=== PATIENT | female | born 1980 | race Caucasian/White ===

== ENCOUNTER 2018-08-11 10:32 | Inpatient (IN) | payer OTHER ==
[2018-08-11] MEDS ORDERED: BICITRA PO SCH (10:35)
[2018-08-11] MEDS ORDERED: PEPCID IV SCH (10:35)
[2018-08-11] MEDS ORDERED: REGLAN IV SCH (10:35)
[2018-08-11] MEDS ORDERED: NARCAN 0.4 MG/1 ML IV PRN ×2 (10:43→14:25)
[2018-08-11] MEDS ORDERED: DILAUDID IV PRN ×2 (10:43)
[2018-08-11] MEDS ORDERED: BENADRYL IV PRN (10:43)
[2018-08-11] MEDS ORDERED: ZOFRAN IV PRN ×2 (10:43→14:25)
[2018-08-11] MEDS ORDERED: PHENERGAN PO PRN (10:43)
[2018-08-11] MEDS ORDERED: PHENERGAN PR PRN (10:43)
--- NOTE | 2018-08-11 10:47 | Anesthesia Consultation ---
Anesthesia Consult and Med Hx Date of service: 08/11/18 - Airway Anesthetic Teeth Evaluation: Good ROM Head & Neck: Adequate Mental/Hyoid Distance: Adequate Mallampati Class: Class II Intubation Access Assessment: Probably Good - Pulmonary Exam CTA: Yes - Cardiac Exam Cardiac Exam: RRR - Pre-Operative Health Status ASA Pre-Surgery Classification: ASA2, Emergency Proposed Anesthetic Plan: Epidural, Spinal - Pulmonary Hx Smoking: No Hx Asthma: No Hx Respiratory Symptoms: No SOB: No COPD: No Home Oxygen Therapy: No Hx Pneumonia: No Hx Sleep Apnea: No - Cardiovascular System Hx Hypertension: No Hx Coronary Artery Disease: No Hx Heart Attack/AMI: No Hx Angina: No Hx Percutaneous Transluminal Coronary Angioplasty (PTCA): No Hx Cardia Arrhythmia: No Hx Pacemaker: No Hx Internal Defibrillator: No Hx Valvular Heart Disease: No Hx Heart Murmur: No Hx Peripheral Vascular Disease: No - Central Nervous System Hx Neuromuscular Disorder: No Hx Seizures: No CVA: No Hx Back Pain: Yes Hx Psychiatric Problems: No - Gastrointestinal Hx Ulcer: No Hx Gastroesophageal Reflux Disease: Yes - Endocrine Hx Renal Disease: No Hx End Stage Renal Disease: No Hx Cirrhosis: No Hx Liver Disease: No Hx Insulin Dependent Diabetes: No Hx Non-Insulin Dependent Diabetes: No Hx Thyroid Disease: No Hx Hypothyroidism: No Hx Hyperthyroidism: No - Hematic Hx Anemia: No Hx Sickle Cell Disease: No - Other Systems Hx Alcohol Use: No Hx Substance Use: No Hx Cancer: No Hx Obesity: Yes
--- NOTE | 2018-08-11 10:47 | Post Anesthesia Evaluation ---
- Post Anesthesia Evaluation Patient Participated: Yes Airway Patent: Yes Stable Respiratory Function: Yes Nausea/Vomiting: No Temp > 96.8F: Yes Pain Manageable: Yes Adequeate Hydration: Yes Anesthesia Complications: Yes Block Receding Appropriately: Yes Patient on Ventilator: No
--- NOTE | 2018-08-11 10:47 | Anesthesia Day of Surgery ---
Anesthesia Day of Surgery - Day of Surgery Patient Examined: Yes Patient H&P Reviewed: Yes Patient is NPO: Yes Beta Blockers: No Cardiac Clearance: No Pulmonary Clearance: No Vinay's Test: N/A
[2018-08-11] MEDS ORDERED: SUBLIMAZE ONE (10:59)
[2018-08-11] MEDS ORDERED: PITOCin/NS 20 UNIT/1000ML DRIP 20 UNITS/1,000 ML BAG IV SCH ×2 (11:00→14:25)
[2018-08-11] MEDS ORDERED: LACTATED RINGERS 1,000 ML IV SCH (11:00)
[2018-08-11] MEDS ORDERED: SODIUM CHLORIDE FLUSH SYRINGE 10 ML IV SCH (11:00)
[2018-08-11] MEDS ORDERED: ANCEF/STERILE WATER 2 GM/20 ML 2 GM/20 ML SYRINGE IV NR (11:00)
[2018-08-11 11:06] LABS: Basophils % (Auto) 0.3 % (0.0-1.8); Eosinophils # (Auto) 0.1 K/mm3 (0.0-0.4); Eosinophils % (Auto) 0.6 % (0.0-4.3); Hematocrit 35.9 % (30.3-42.9); Hemoglobin 12.2 gm/dl (10.1-14.3); Lymphocytes # (Auto) 3.1 K/mm3 (1.2-5.4); Mean Corpuscular HGB Conc 34 % (30-34); Mean Corpuscular Volume 85 fl (79-97); Monocytes # (Auto) 0.6 K/mm3 (0.0-0.8); Monocytes % (Auto) 5.9 % (0.0-7.3); Platelet Count 282 K/mm3 (140-440); Red Blood Count 4.21 M/mm3 (3.65-5.03)
--- NOTE | 2018-08-11 11:06 | History and Physical Report ---
History of Present Illness Date of examination: 08/11/18 Date of admission: 08/11/18 10:32 History of present illness: Patient presented to labor and delivery with complaints of ruptured membranes and regular contractions. Patient receiving care at [facility] gives a history of 2 previous sections. Workup in triage revealed the patient with ruptured membranes, regular contractions and cervix dilated to 4 cm. patient's history was obtained with interpretation by Elo Schmitz RN Past History Past Medical History: no pertinent history Past Surgical History: section Social history: full code - Obstetrical History Expected Date of Delivery: 08/18/18 Actual Gestation: 39 Week(s) 0 Day(s) : 3 Para: 2 Hx # Term Pregnancies: 2 Number of Pregnancies: 0 Spontaneous Abortions: 0 Induced : 0 Number of Living Children: 2 Medications and Allergies Allergies Allergy/AdvReac Type Severity Reaction Status Date / Time No Known Allergies Allergy Unverified 02/11/14 16:55 Home Medications Medication Instructions Recorded Confirmed Last Taken Type Phenazopyridine [Pyridium] 200 mg PO TID #6 tablet 02/11/14 02/28/15 Unknown Rx Sulfamethoxazole/Trimethoprim 1 each PO BID 7 Days tablet 02/11/14 02/28/15 Unknown Rx [Bactrim Ds] Ibuprofen [Motrin 600 MG tab] 600 mg PO Q8H PRN #30 tablet 02/28/15 Unknown Rx Multivitamin with Iron 1 each PO DAILY #30 tablet 02/28/15 Unknown Rx [Multivitamins with Iron] oxyCODONE /ACETAMINOPHEN [Percocet 1 tab PO Q6HR PRN #30 tablet 02/28/15 Unknown Rx 5/325] Ferrous Sulfate [Feosol 325 MG tab] 325 mg PO BID #60 tablet 08/11/18 Unknown Rx Ibuprofen [Motrin 800 MG tab] 800 mg PO Q6H PRN #30 tablet 08/11/18 Unknown Rx oxyCODONE /ACETAMINOPHEN [Percocet 1 - 2 tab PO Q4H PRN #20 tablet 08/11/18 Unknown Rx 5/325 mg] Active Meds: Active Medications Citric Acid/Sodium Citrate (Bicitra) 30 ml PO ONCE ONE Stop: 08/11/18 10:36 Diphenhydramine HCl (Benadryl) 12.5 mg IV Q2H PRN PRN Reason: Itching Famotidine (Pepcid) 20 mg IV ONCE ONE Stop: 08/11/18 10:36 Hydromorphone HCl (Dilaudid) 0.5 mg IV Q5M PRN PRN Reason: Breakthrough Pain Hydromorphone HCl (Dilaudid) 0.5 mg IV Q4H PRN PRN Reason: breakthrough pain > 7/10 Cefazolin Sodium (Ancef/Sterile Water 2 Gm/20 Ml) 2 gm in 20 mls @ 80 mls/hr IV PREOP NR; Protocol Stop: 08/11/18 20:00 Oxytocin/Sodium Chloride (Pitocin/Ns 20 Unit/1000ml Drip) 20 units in 1,000 mls @ 0 mls/hr IV TITR SERAFIN Lactated Ringer's (Lactated Ringers) 1,000 mls @ 2,250 mls/hr IV PREOP SERAFIN Stop: 08/12/18 11:27 Metoclopramide HCl (Reglan) 10 mg IV ONCE ONE Stop: 08/11/18 10:36 Naloxone HCl (Narcan 0.4 Mg/1 Ml) 0.2 mg IV Q2MIN PRN PRN Reason: Res Rate </= 8 or 02 SAT < 92% Ondansetron HCl (Zofran) 4 mg IV Q8H PRN PRN Reason: Nausea And Vomiting Promethazine HCl (Phenergan) 25 mg PO Q6H PRN PRN Reason: Nausea And Vomiting Promethazine HCl (Phenergan) 25 mg NE Q6H PRN PRN Reason: Nausea And Vomiting Sodium Chloride (Sodium Chloride Flush Syringe 10 Ml) 10 ml IV PRN NR Review of Systems All systems: negative Genitourinary: contractions - Physical Exam Breasts: Positive: deferred Abdomen: Positive: normal appearance, soft, normal bowel sounds Genitourinary (Female): Positive: normal external genitalia Uterus: Positive: enlarged Extremities: Positive: normal - Obstetrical FHR: category 1 Uterine Contraction Pattern: Regular Uterine Contraction Intensity: Strong/Firm Results Result Diagrams: 08/11/18 10:50 All other labs normal. Assessment and Plan - Patient Problems (1) Active labor at term Current Visit: No Status: Acute (2) Previous delivery, antepartum Current Visit: No Status: Acute Plan to address problem: Previous section 2. Gestation states that she was scheduled for repeat section at her primary [facility]. Patient understands the indication for repeat section due to 2 previous sections.Patient informed the risks of the surgery include bleeding possibly bleeding heavy enough to require blood transfusion, infection possible damage to bowel bladder ureter. All questions answered. Patient agrees to proceed patient did sign completed today operative consent in Persian.
[2018-08-11] MEDS ORDERED: TORADOL ONE (12:05)
--- NOTE | 2018-08-11 12:14 | Operative Report ---
Operative Report Operative Report: Date of procedure: 08/11/2018 Pre-operative diagnosis: Intrauterine at 39 weeks with ruptured membr anes in active labor with a history of 2 previous sections Post-operative diagnosis: Same Procedure name(s): Repeat low-transverse section Surgeon: Pierre Bland MD Space Physicist: Anesthesia: Spinal EBL: 500 mL Complications: None Findings: Patient with gravid uterus with thin lower uterine segment with adhesions between the anterior uterus and bladder. Normal tubes and ovaries bilaterally. Male weight 6 lbs. 8 oz. Apgars 9 at 1 minute and 9 at 5 minutes Specimen(s): Cord blood Procedure: The patient was brought to the operating room. A spinal was placed without any complications. She was then placed in left lateral tilt. Prepped and draped in the usual sterile manner. After testing for adequate anesthesia level, a Pfannenstiel incision was made through her previous scar. This incision was taken down to the fascia. The fascia was then nicked in the midline. This incision was extended out laterally with Lee scissors. The fascia was then sharply and bluntly from the underlying rectus muscles. The rectus muscles were bluntly and sharply . The peritoneum was then entered with the cuff turner machine operator's fingers. This incision was spread vertically with care not to damage the bladder below. The bladder flap was then formed sharply and bluntly with Metzenbaum scissors. The José Luis self-retaining tractor was then placed without any difficulty. A transverse incision was made in lower uterine segment. This incision was extended laterally with the operators fingers. The amniotic sac was then entered bluntly with the ope rator's fingers. The was delivered from the vertex position. Bulb suction on the mother's abdomen. Cord was double clamped and cut. The infant was then passed to the nursery personnel who were in attendance. The above scores were given by the nursery personnel. The placenta was then bluntly removed. The uterus was then externalized and wiped clean the remaining products. The uterine incision was closed in layers. The first incision was closed in a locking manner using 0 Vicryl. This was followed by imbricating stitch also with 0 Vicryl. This closure was hemostatic. The bladder flap was copiously irrigated and found to be hemostatic. The pelvis was copiously irrigated and found to be hemostatic. The uterus was then placed back to the patient's abdomen. The retractors were removed. The rectus muscles were inspected and found to be hemostatic. The fascia was then closed in a running manner using 0 Vicryl. This incision was hemostatic irrigation Bovie. The skin was reapproximated with 4-0 Vicryl subcuticularly. The patient tolerated procedure well. Her urine was clear. The was admitted to the well baby nursery. The patient was accompanied to recovery room in good condition. Instrument count correct 3.
[2018-08-11 12:33] LABS: Hepatitis C Virus Antibody Nonreactive (NonReactive)
[2018-08-11] MEDS ORDERED: SODIUM CHLORIDE FLUSH SYRINGE 10 ML IV NR (14:25)
[2018-08-11] MEDS ORDERED: TORADOL IV PRN (14:25)
[2018-08-11] MEDS ORDERED: LANSINOH TP PRN (14:25)
[2018-08-11] MEDS ORDERED: MYLICON PO PRN (14:25)
[2018-08-11] MEDS ORDERED: D5LR 1,000 ML IV SCH ×2 (14:25→15:00)
[2018-08-11] MEDS ORDERED: MILK OF MAGNESIA PO PRN (14:25)
[2018-08-11] MEDS ORDERED: ANCEF/NS 1 GM/50 ML 1 GM/50 ML BAG IV SCH (14:25)
[2018-08-11] MEDS ORDERED: TUCKS PAD TP PRN (14:25)
[2018-08-11 17:09] LABS: Amphetamine Screen,Urine PRESUMPTIVE NEGATIVE; Benzodiazepines Screen,Urine PRESUMPTIVE NEGATIVE; Cannabinoid Screen,Urine PRESUMPTIVE NEGATIVE; Cocaine Screen,Urine PRESUMPTIVE NEGATIVE; Methadone Screen,Urine PRESUMPTIVE NEGATIVE; Opiate Screen,Urine PRESUMPTIVE NEGATIVE
[2018-08-11] MEDS: ANCEF/NS 1 GM/50 ML 1 GM/50 ML BAG IV SCH (20:16)
[2018-08-11] MEDS: NORCO 5/325 PO PRN (23:36)
[2018-08-11] MEDS ORDERED: LACTATED RINGERS 300 ML IV SCH (23:45)
[2018-08-12 01:10] LABS: Hematocrit 29.8 % (30.3-42.9); Hemoglobin 10.4 gm/dl (10.1-14.3)
[2018-08-12] MEDS: ANCEF/NS 1 GM/50 ML 1 GM/50 ML BAG IV SCH (03:05)
[2018-08-12] MEDS: IBUPROFEN PO PRN ×2 (07:50→15:27)
[2018-08-12] MEDS: FEOSOL PO SCH (09:26)
[2018-08-12] MEDS: PRENATAL VITAMIN PO SCH (09:26)
[2018-08-12] MEDS: NORCO 5/325 PO PRN ×2 (09:27→15:25)
--- NOTE | 2018-08-12 19:43 | Progress Note ---
Assessment and Plan POD 1 s/p repeat c/s. Patient reports feeling well, denies any complaints or concerns at this time. Fundus is firm, ML, U/1. Vaginal bleeding is scant, patient denies any heavy bleeding or clots. Abdominal incision is healing well, well-approximated, no bleeding or drainage noted, no s/s of infection. Steri strips and abdominal binder in place at current. Patient reports pain is zero at this time, well controlled with medications. She reports is going well and infant is doing well. VSSAF, BP are normal/stable range for patient. She denies any dizziness or feeling faint with position changes or ambulation. post delivery H&H reviewed with patient, stable. Will continue post op pathway. Subjective - Subjective Date of service: 08/12/18 Principal diagnosis: POD 1 s/p repeat c/s Patient reports: appetite normal, voiding normally, pain well controlled, ambulating normally : doing well Objective - Vital Signs Latest vital signs: Vital Signs Temp Pulse Resp BP BP Pulse Ox 08/12/18 16:51 98.0 F 69 18 95/39 96 08/12/18 07:54 97.7 F 72 18 102/46 96 08/12/18 04:11 98.3 F 76 18 105/41 96 08/12/18 00:00 98.2 F 76 18 98/46 08/11/18 23:36 18 08/11/18 19:56 98.5 F 68 18 104/54 99 Intake and Output 08/12/18 08/12/18 08/12/18 07:59 15:59 23:59 Intake Total 120 Output Total 400 Balance -280 Intake: Oral 120 Output: Urine 400 Void 400 Other: Total, Intake Amount 120 Total, Output Amount 400 # Voids Void 1 - Exam Breasts: Present: normal Cardiovascular: Present: Regular rate, Normal S1, Normal S2 Lungs: Present: Clear to auscultation Abdomen: Present: normal appearance, soft, normal bowel sounds Vulva: both: normal Uterus: Present: normal, firm Extremities: Present: normal Deep Tendon Reflex Grade: Normal +2 Incision: Present: normal, dry, intact - Labs Labs: Abnormal lab results 08/12/18 Range/Units 00:47 Hct 29.8 L D (30.3-42.9) %
[2018-08-13] MEDS: IBUPROFEN PO PRN ×2 (00:15→10:50)
[2018-08-13] MEDS: NORCO 5/325 PO PRN ×2 (00:15→05:48)
--- NOTE | 2018-08-13 06:32 | Discharge Summary ---
Providers - Providers Date of Admission: 08/11/18 10:32 Date of discharge: 08/13/18 (male partner present in room Interpreted instructions; pt agrees with d/c) Attending physician: LEESA DUNCAN 08/11/18 14:25 Consult to Transmission Maintenance Supervisor [CONS] Routine Reason For Exam: Primary care physician: LEESA DUNCAN Hospitalization Reason for admission: active labor Delivery: Procedure: repeat low transverse Episiotomy: none Laceration: none Incision: normal, dry, intact Other procedures: none complications: none Discharge diagnosis: IUP at term delivered baby: male Hospital course: walk-in uncomplicated repeat section Pt voiced no c/o this AM VSS FF below umb Lochia scant Incision D&I Abdominal binder on. H&H stable No s/sx of anemia Doing well s/p repeat c/s P: d/c today with instructions RTO 1 week postop care Pt desires to f/u with [facility] information given Condition at discharge: Good Disposition: DC-01 TO HOME OR SELFCARE - Discharge Diagnoses (1) delivery delivered Status: Acute Comment: RTO 1 week postop care Plan - Discharge Medications Prescriptions: Ferrous Sulfate [Feosol 325 MG tab] 325 mg PO BID #60 tablet Ibuprofen [Motrin 800 MG tab] 800 mg PO Q6H PRN #30 tablet PRN Reason: Pain oxyCODONE /ACETAMINOPHEN [Percocet 5/325 mg] 1 - 2 tab PO Q4H PRN #20 tablet PRN Reason: Pain, Moderate - Provider Discharge Summary Activity: routine, no sex for 6 weeks, no heavy lifting 4 weeks, no strenuous exercise Diet: routine Instructions: routine Additional instructions: [] Smoking cessation referral if applicable(refer to patient education folder for contact #) [] Refer to [facility] Booklet Call your doctor immediately for: * Fever > 100.5 * Heavy vaginal bleeding ( >1 pad per hour) * Severe persistent headache * Shortness of breath * Reddened, hot, painful area to leg or breast * Drainage or odor from incision. * Keep incision clean and dry at all times and follow doctor's instructions regarding bathing/showering - Follow up plan Follow up: LEESA DUNCAN MD [Primary Care Provider] - 7 Days (Congratulations! Please call [phone] to schedule your postoperative visit in 1 week. Take medications as prescribed. Call with concerns. [facility], [address], [address], [facility], [id number])
[2018-08-13] MEDS: FEOSOL PO SCH (10:48)
[2018-08-13] MEDS: PRENATAL VITAMIN PO SCH (10:48)
[2018-08-13 16:30] VITALS: BP 112/68
== END 2018-08-13 16:05 | disposition home or self-care (01) | DRG 787 ==
LOC: APU 10:32 → OB 14:20
PROVIDERS: ADMIT Obstetrics & Gynecology; ATTEND Obstetrics & Gynecology
PROC: 10D00Z1 Extraction of Products of Conception, Low, Open Approach (ICD-10-PCS; principal; 2018-08-11)
DX: O34.211 Maternal care for low transverse scar from previous cesarean delivery (principal); D62 Acute posthemorrhagic anemia; O99.62 Diseases of the digestive system complicating childbirth; K21.9 Gastro-esophageal reflux disease without esophagitis; O99.214 Obesity complicating childbirth; O99.02 Anemia complicating childbirth; E66.9 Obesity, unspecified; Z37.0 Single live birth; Z3A.39 39 weeks gestation of pregnancy
CPT/HCPCS: 36415; 80307; 85014; 85018; 85025; 85660; 86592; 86706; 86762; 86803; 86850; 86900; 86901; 87806; G0378; C1765; J0690; J1885; J2590; J3010; J7120; J7121